=== PATIENT | female | born 1950 | race African-American/Black ===

== ENCOUNTER 2016-11-28 10:28 | Outpatient (CLI) | payer MEDICARE, MEDICAID ==
[2016-11-28] MEDS ORDERED: ADVAIR HFA 115-12 GM INH (11:35)
[2016-11-28] MEDS ORDERED: MONTELUKAST SOD10 MG ORAL (11:35)
[2016-11-28] MEDS ORDERED: EDARBI40 MG ORAL (11:35)
--- NOTE | 2016-11-28 11:41 | GI Initial Consult Note ---
History of Present Illness General Date patient seen: November 28, 2016 Time patient seen: 11:29 Referring physician: PRIYA Reason for Consultation: PANCREATIC CYST Present Illness HPI 66 year old female patient familiar to Dr. Urbina from [facility] presents today for evaluation of pancreatic cyst and inflammation which was down on a previous CT study. The pt c/o LUQ pain she contributes to her pancreatitis, stating that her trial period of Creon has been helpful. In addition, the patient c/o of fluctuating weight loss and gain in the past few months which has now stabilized. Last EGD/colonoscopy was approximately 4 years ago. Home Meds Reported Medications Fluticasone/Salmeterol (ADVAIR HFA 115-21 MCG INHALER) Unknown Strength Hfa.aer.ad, INH EVERY 12 HOURS, EA 11/28/16 Montelukast Sodium* (MONTELUKAST SODIUM*) Unknown Strength Tablet, ORAL DAILY, TAB 11/28/16 Azilsartan Medoxomil (EDARBI) Unknown Strength Tablet, ORAL DAILY, TAB 11/28/16 Med list reviewed/reconciled: Yes Allergies: Coded Allergies: No Known Allergies (Unverified , 11/28/16) Patient History PMH Narrative Asthma HTN Family History Narrative N/A Social History: Denies: alcohol use, drug use, other, smoking Review of Systems All Other Systems: negative except mentioned in HPI Physical Exam T 98.1 BP 99/73 P 74 99 RA WT 217.3 lbs (loss from ~240 >> 197 >> now present) 4 months Sp02 EP Interpretation: reviewed General Appearance: well appearing, no apparent distress, alert, obese Head: normocephalic EENT: normal ENT inspection Neck: supple Respiratory: normal inspection, chest non-tender, lungs clear Cardiovascular: normal rate Gastrointestinal: normal inspection, non tender, soft Rectal: deferred Musculoskeletal: normal inspection, back normal Neurologic: normal inspection, alert, oriented x3, responsive Psychiatric: normal inspection, judgement/insight normal, memory normal Skin: normal inspection, normal color, no rash Lymphatic: normal inspection, no adenopathy GI: Plan Problems: (1) HTN (hypertension) (2) Asthma (3) Pancreatic cyst (4) Pancreatitis Plan h/o of colonic polyps >> pt will need colonoscopy on next visit EUS scheduled 12/06/16 to evaluate pancreatic cyst - NPO @ MN day prior to procedure. - labs to be drawn: CA19-9, CEA rx linzess 25 mcg monitor weight Seen with Dr. Urbina. Thank you for referring this patient. Monica Rubio N.P. November 28, 2016 11:41
[2016-11-28 12:48] VITALS: BP 99/73
== END 2016-11-28 11:10 | disposition home or self-care (01) ==
LOC: PAN 10:28
DX: I10 Essential (primary) hypertension (principal); J45.909 Unspecified asthma, uncomplicated; K86.2 Cyst of pancreas; K85.90 Acute pancreatitis without necrosis or infection, unspecified
CPT/HCPCS: 99211

== ENCOUNTER 2016-12-06 08:13 | Day surgery (SDC) | payer MEDICARE, MEDICAID ==
[~2016-12-06] VITALS: Ht 158.8 cm; Wt 98.4 kg
[2016-12-06] VITALS (9 sets, daily range): BP systolic 122–136; BP diastolic 56–68
[~2016-12-06 08:13] MED LIST: ADVAIR HFA 115-12 GM INH; CREON DR 3,0001 EACH PO; EDARBI40 MG ORAL; MONTELUKAST SOD10 MG ORAL
[2016-12-06] MEDS ORDERED: VITAMIN D3 COM1 EACH PO (09:14)
[2016-12-06] MEDS ORDERED: [UNRECOGNIZED DRUG - OTHER] PO (09:14)
[2016-12-06] MEDS ORDERED: PERCOCET 10-321 EAC1 PO (09:16)
[2016-12-06] MEDS ORDERED: MOTRIN PO (09:17)
[2016-12-06] MEDS ORDERED: Propofol 10mg/ml 20ml IV ONE (09:30)
[2016-12-06] MEDS ORDERED: fentaNYL 100 mcg/2 mL IV ONE (09:30)
[2016-12-06] MEDS ORDERED: Midazolam 2mg/2ml Inj ONE (09:30)
[2016-12-06] MEDS ORDERED: LR 1000ml ONE (09:30)
--- NOTE | 2016-12-06 09:32 | Pre-Procedure Note/Attestation ---
Pre-Procedure Note/Attestation Complete Prior to Procedure Planned Procedure: not applicable Procedure Narrative: egd/eus Indications for Procedure Pre-Operative Diagnosis: pancreatic cyst Attestation I attest that I discussed the nature of the procedure; its benefits; risks and complications; and alternatives (and the risks and benefits of such alternatives ), prior to the procedure, with the patient (or the patient's legal employee representative). I attest that, if there was a reasonable possibility of needing a blood transfusion, the patient (or the patient's legal employee representative) was given the [facility] standardized written summary, pursuant to the Sanjay Radha Blood Safety Act ([place] Health and Safety Code # 1645, as amended). I attest that I re-evaluated the patient just prior to the surgery and that there has been no change in the patient's H&P, except as documented below: BRANDON SOUZA Dec 06, 2016 09:32
--- NOTE | 2016-12-06 09:32 | Short Stay Surgery H&P ---
History of Present Illness History of Present Illness Chief Complaint see recent consult note HPI Amalia White is a 66 year old female who was admitted on for Pancreatic Cyst Patient History Allergies: Coded Allergies: AMPICILLIN (Verified Allergy, Severe, HIVES, ITCH, 12/05/16) ASPIRIN (Verified Allergy, Severe, TONGUE SWELLING, ITCHING, 12/05/16) ERYTHROMYCIN BASE (Verified Allergy, Severe, ITCH , 12/05/16) IODINE (Verified Allergy, Severe, HIVES, ITCHING, 12/05/16) PENICILLINS (Verified Allergy, Severe, HIVES, 12/05/16) TETRACYCLINES (Verified Allergy, Severe, SWELLING, ITCHING, 12/05/16) PAST MEDICAL HISTORY: Past Surgeries: Social History: Medication History Scheduled Azilsartan Medoxomil (Edarbi), Unknown Dose ORAL DAILY, (Reported) Fluticasone/Salmeterol (Advair Hfa 115-21 Mcg Inhaler), Unknown Dose INH EVERY 12 HOURS, (Reported) Lipase/Protease/Amylase (Creon Dr 3,000 Units Capsule), 1 EACH PO DAILY, ( Reported) Montelukast Sodium* (Montelukast Sodium*), Unknown Dose ORAL DAILY, (Reported) Mv-Mn/Iron/Fa/Herbal Cmplx#190 (Vitamin D3 Complete Caplet), 1 EACH PO DA, ( Reported) [Motrin], 800 MG PO BID, (Reported) [Urgent Energy], 2 CAP PO DA, (Reported) Scheduled PRN Oxycodone HCl/Acetaminophen (Percocet 10-325 mg Tablet), 1 EACH PO Q6 PRN for For Pain, (Reported) Physical Exam Vital Signs Last Vital Signs Date Time Temp Pulse Resp B/P Pulse Ox O2 Delivery O2 Flow Rate FiO2 12/06/16 09:06 98.2 67 20 122/68 98 Room Air Plan Attestation Are the patient's medical conditions optimized for surgery? BRANDON SOUZA Dec 06, 2016 09:32
--- NOTE | 2016-12-06 10:01 | Endoscopy Procedure Note ---
Endoscopy Procedure Note Indication for Procedure: pancreatic cyst, abd pain Procedures Performed: EGD, other - EUS Operative Findings/Diagnosis: gastritis Specimen: yes Pt Tolerated Procedure Well: Yes Estimated Blood Loss: none Anesthesiologist: pipe Anesthesia: MAC Implant(s) used?: No 50 yrs or older w/o bx or poly: Not Applicable 10yrs. F/U not recommended: Not Applicable BRANDON SOUZA Dec 06, 2016 10:01
[2016-12-06] MEDS ORDERED: LR 1000ml 1,000 ML IVLG SCH (10:08)
[2016-12-06] MEDS ORDERED: DiphenhydrAMINE 50mg/ml Inj IVP PRN (10:15)
[2016-12-06] MEDS ORDERED: Meperidine 25mg/0.5ml Inj IM PRN (10:15)
--- NOTE | 2016-12-06 10:26 | Anethesia Preoperative Eval ---
Anesthesia Pre-op PMH/ROS General Date of Evaluation: Dec 06, 2016 Time of Evaluation: 09:22 Anesthesiologist: Haylie ASA Score: ASA 3 Mallampati Score Class I : Soft palate, uvula, fauces, pillars visible Class II: Soft palate, uvula, fauces visible Class III: Soft palate, base of uvula visible Class IV: Only hard plate visible Mallampati Classification: Class III Surgeon: Ciara Diagnosis: Abdominal pain Surgical Procedure: EGD wt EUS Anesthesia History: none Family History: no anesthesia problems Allergies: Coded Allergies: AMPICILLIN (Verified Allergy, Severe, HIVES, ITCH, 12/05/16) ASPIRIN (Verified Allergy, Severe, TONGUE SWELLING, ITCHING, 12/05/16) ERYTHROMYCIN BASE (Verified Allergy, Severe, ITCH , 12/05/16) IODINE (Verified Allergy, Severe, HIVES, ITCHING, 12/05/16) PENICILLINS (Verified Allergy, Severe, HIVES, 12/05/16) TETRACYCLINES (Verified Allergy, Severe, SWELLING, ITCHING, 12/05/16) Medications: see eMAR Past Medical History Cardiovascular: Reports: HTN, Denies: CAD, [place], arrhythmia, other, valve dz Pulmonary: Reports: ALLAN, Denies: COPD, asthma, other Gastrointestinal/Genitourinary: Reports: GERD, Denies: CRI, ESRD, other Neurologic/Psychiatric: Denies: CVA, TIA, dementia, depression/anxiety, other Endocrine: Reports: DM, Denies: hypothyroidism, other, steroids HEENT: Denies: [place] (L), [place] (R), cataract (L), cataract (R), glaucoma, other Hematology/Immune: Denies: DVT, anemia, bleeding disorder, other Musculoskeletal/Integumentary: Reports: DJD, Denies: DDD, OA, RA, edema, other Other: obesity PMH Narrative: as above PSxH Narrative: C- section, colonoscopy,Knee arthroplasty Anesthesia Pre-op Phys. Exam Physician Exam Last Vital Signs Date Time Temp Pulse Resp B/P Pulse Ox O2 Delivery O2 Flow Rate FiO2 12/06/16 10:14 69 27 132/66 14 Room Air 12/06/16 10:09 3.0 12/06/16 10:04 97.3 Constitutional: NAD Neurologic: CN 2-12 intact Cardiovascular: RRR, no M/R/G Respiratory: CTA Gastrointestinal: other - obesity Airway Exam Mallampati Score: Class III MO: limited Neck: short ROM: limited Teeth: missing Dentures: no lower, no upper Anesthesia Pre-op A/P Studies Pre-op Studies: EKG - SR Risk Assessment & Plan Assessment: ASA 3 Plan: MAC Status Change Before Surgery: No Pre-Antibiotics Drug: none ALCON PIZARRO M.D. Dec 06, 2016 10:26
[2016-12-06] MEDS ORDERED: Meperidine 25mg/0.5ml Inj ONE (10:27)
[2016-12-06] MEDS ORDERED: Meperidine 25mg/0.5ml Inj IV PRN (10:30)
--- NOTE | 2016-12-06 10:51 | Immediate Post-Op Evaluation ---
Immediate Post-Op Evalulation Immediate Post-Op Evalulation Procedure: EGD with EUS Date of Evaluation: Dec 06, 2016 Time of Evaluation: 10:08 IV Fluids: 300 Blood Products: none Estimated Blood Loss: none Urinary Output: none Blood Pressure Systolic: 132 Blood Pressure Diastolic: 56 Pulse Rate: 64 Respiratory Rate: 20 O2 Sat by Pulse Oximetry: 98 Temperature (Fahrenheit): 97.3 Pain Score (1-10): 2 Nausea: No Vomiting: No Complications none Patient Status: awake, patent, none Hydration Status: adequate ALCON PIZARRO M.D. Dec 06, 2016 10:51
--- NOTE | 2016-12-06 11:03 | 48 Hour Post Anesthesia Eval ---
Post Anesthesia Evaluation Procedure: EGD with EUS Date of Evaluation: Dec 06, 2016 Time of Evaluation: 11:02 Blood Pressure Systolic: 138 0: 58 Pulse Rate: 64 Respiratory Rate: 20 Temperature (Fahrenheit): 97.4 O2 Sat by Pulse Oximetry: 98 Airway: patent Nausea: No Vomiting: No Pain Intensity: 2 Hydration Status: adequate Cardiopulmonary Status: stable Mental Status/LOC: patient returned to baseline Follow-up Care/Observations: n/a Post-Anesthesia Complications: none Follow-up care needed: ready to discharge ALCON PIZARRO M.D. Dec 06, 2016 11:03
--- NOTE | 2016-12-06 17:45 | Procedure Note ---
DATE OF PROCEDURE: 12/06/2016 SURGEON: Medardo Urbina M.D. PROCEDURE: Upper endoscopy with biopsy and endoscopic ultrasound. ANESTHESIOLOGIST: Lev Stallings M.D. INSTRUMENT: Olympus adult flexible upper endoscope and EUS scope. INDICATION: Pancreatic cyst, abdominal pain, nausea and vomiting. INDICATIONS FOR PROCEDURE: The procedure, risks, benefits, and possible consequences, including hemorrhage, aspiration, perforation and infection, and alternative treatments, were explained to the patient/legal guardian by Dr. Medardo Urbina and the patient/legal guardian understood and accepted these risks. DESCRIPTION OF PROCEDURE: After informed consent was obtained and the patient was adequately sedated, the Olympus upper endoscope was advanced through the mouth into the second portion of the duodenum and retroflexion maneuver was performed in the stomach. The patient had evidence of diffuse gastritis. Random biopsy from antrum was obtained to rule out H. pylori infection. The patient also had mild evidence of duodenitis. At this time, upper endoscope was retrieved and EUS scope was introduced. Starting scanning at the GE junction, we saw the celiac axis without any obvious celiac axis lymphadenopathy. Pancreatic parenchyma was examined with the scope in the stomach. There was no evidence of any pancreatitis. No obvious pancreatic duct dilatation. No obvious cyst in the body or tail of the pancreas while the scope was in the stomach. No evidence any parapancreatic lymphadenopathy. Then, the scope was advanced through the duodenal bulb and second portion of the duodenum. Liver was seen with some fatty infiltration. There was no evidence of any gallstones. Common bile duct measured roughly about 3 mm without any obvious stone in the common bile duct. No obvious mass or any pathology or lymph node in this area was seen. The pancreatic head examination, starting at the ampulla, there was normal common bile duct and pancreatic duct size in the head of the pancreas. No other cyst that was seen in the prior CT scan. We were not able to see very well in this study, although we had a hard time keeping the scope in the second portion of the duodenum, every time we tried to get a good close of the head, the scope was withdrawn back into the stomach. We kept the scope in the duodenal bulb and inflated the balloon and tried to examine the head from that area which we did not see obvious cyst. The patient tolerated the procedure without any complication. SUMMARY OF FINDINGS: 1. Gastritis, status post biopsy. 2. Fatty infiltration of the liver. 3. No obvious pancreatic cyst was seen. 4. Normal common bile duct and pancreatic duct caliber. RECOMMENDATIONS: At this time, the patient has been responding to Creon. We do not see any obvious pancreatitis. No pancreatic mass at this time. We recommend repeat imaging studies in one year to see if there is any cyst at that time. I want to thank, Dr. Gavin Greenwood, for this kind referral. Medardo Urbina M.D. DR: Nora JOB#: [id number] CC: Gavin Greenwood M.D.; Fax#: [phone]
--- NOTE | 2016-12-07 09:09 | Cardiology Report ---
APPROVED REPORT EKG Measurement Heart [id number] AR 162P68 [id number] Normal sinus rhythm Left axis deviation Abnormal ECG
== END 2016-12-06 12:05 | disposition home or self-care (01) ==
LOC: GAS 08:13
DX: K86.2 Cyst of pancreas (principal); K29.50 Unspecified chronic gastritis without bleeding; K29.80 Duodenitis without bleeding; I10 Essential (primary) hypertension; G47.33 Obstructive sleep apnea (adult) (pediatric); K21.9 Gastro-esophageal reflux disease without esophagitis; E11.9 Type 2 diabetes mellitus without complications; M19.90 Unspecified osteoarthritis, unspecified site; E66.9 Obesity, unspecified; K76.0 Fatty (change of) liver, not elsewhere classified; Z88.3 Allergy status to other anti-infective agents; Z88.0 Allergy status to penicillin; Z88.1 Allergy status to other antibiotic agents; Z88.6 Allergy status to analgesic agent; Z91.041 Radiographic dye allergy status
CPT/HCPCS: 43237; 43239; 82962; 93005; J2250; J2704; J3010; J7120; 94003; 94150; J2180

== ENCOUNTER 2016-12-21 10:24 | Outpatient (CLI) | payer MEDICARE, MEDICAID ==
[~2016-12-21 10:24] MED LIST changes: +MOTRIN PO; +PERCOCET 10-321 EAC1 PO; +VITAMIN D3 COM1 EACH PO; +[UNRECOGNIZED DRUG - OTHER] PO
[2016-12-21 12:14] VITALS: BP 143/45
[2016-12-21] MEDS ORDERED: blood thinner (12:22)
--- NOTE | 2016-12-21 15:41 | GI Progress Note ---
Assessment/Plan Problems: (1) HTN (hypertension) ICD Codes: I10 - Essential (primary) hypertension SNOMED: 12625936 (2) Asthma ICD Codes: J45.909 - Unspecified asthma, uncomplicated SNOMED: 734663627 (3) Pancreatitis ICD Codes: K85.90 - Acute pancreatitis without necrosis or infection, unspecified SNOMED: 28401447 (4) Pancreatic cyst ICD Codes: K86.2 - Cyst of pancreas SNOMED: 67138380 Status: stable Status Narrative Discussed with Dr. Urbina. Assessment/Plan hx of colonic polyps last colonoscopy 5+ years new DVT, started on blood thinners 2 weeks ago cont Creon plan for colonoscopy in March. RTC x 3 months Endoscopy Procedure Note Indication for Procedure: pancreatic cyst, abd pain Procedures Performed: EGD, other - EUS Operative Findings/Diagnosis: gastritis BRANDON URBINA - Dec 06, 2016 10:01 Subjective Subjective Abdominal Pain RLQ improving increase of weight (217 to 226lbs) diarrhea, 2x weekly with large stools new DVT, started on blood thinners 2 weeks ago Objective Last 24 Hour Vital Signs Date Time Temp Pulse Resp B/P Pulse Ox O2 Delivery O2 Flow Rate FiO2 12/21/16 12:14 98.1 70 20 143/45 99 General Appearance: no apparent distress, alert Cardiovascular: normal rate Respiratory/Chest: normal breath sounds, no respiratory distress Abdominal Exam: normal bowel sounds, non tender, soft Extremities: normal range of motion Monica Rubio N.P. Dec 21, 2016 15:41
== END 2016-12-21 11:00 | disposition home or self-care (01) ==
LOC: PAN 10:24
DX: I10 Essential (primary) hypertension (principal); J45.909 Unspecified asthma, uncomplicated; K85.90 Acute pancreatitis without necrosis or infection, unspecified; K86.2 Cyst of pancreas
CPT/HCPCS: 99211

== ENCOUNTER 2017-05-02 20:49 | Emergency (ER) | payer OTHER, MEDICAID ==
[~2017-05-02] VITALS: Ht 157.5 cm; Wt 96.6 kg
[~2017-05-02 20:49] MED LIST changes: +blood thinner
[2017-05-02] MEDS ORDERED: EDARBI80 MG ORAL (20:58)
[2017-05-02] MEDS ORDERED: METFORMIN HCL500 M1 ORAL (20:58)
[2017-05-02 21:00] VITALS: BP 156/80
[2017-05-02] MEDS ORDERED: HYDROCODON-ACE1 EA15 ORAL (21:11)
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
[2017-05-02] MEDS ORDERED: Norco 5mg/325mg tab ORAL ONE (21:15)
[2017-05-02 21:26] VITALS: BP 156/80
== END 2017-05-02 21:26 | disposition home or self-care (01) ==
LOC: EMR 21:07
DX: S16.1XXA Strain of muscle, fascia and tendon at neck level, initial encounter (principal); S39.012A Strain of muscle, fascia and tendon of lower back, initial encounter; V43.52XA Car driver injured in collision with other type car in traffic accident, initial encounter; Y92.410 Unspecified street and highway as the place of occurrence of the external cause; I10 Essential (primary) hypertension; J45.909 Unspecified asthma, uncomplicated; E11.9 Type 2 diabetes mellitus without complications; Z88.0 Allergy status to penicillin; Z88.6 Allergy status to analgesic agent
CPT/HCPCS: 99283

== ENCOUNTER 2017-05-14 20:23 | Emergency (ER) | payer OTHER, MEDICAID ==
[~2017-05-14] VITALS: Ht 157.5 cm; Wt 100.7 kg
[~2017-05-14 20:23] MED LIST changes: +EDARBI80 MG ORAL; +HYDROCODON-ACE1 EA15 ORAL; +METFORMIN HCL500 M1 ORAL
[2017-05-14 21:00] VITALS: BP 161/95
[2017-05-14] MEDS ORDERED: Acetaminophen 500mg (ES) tab ORAL ONE (21:15)
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
[2017-05-14] MEDS ORDERED: ROBAXIN-750750 MG PO (21:20)
[2017-05-14 22:06] VITALS: BP 161/95
== END 2017-05-14 22:06 | disposition home or self-care (01) ==
LOC: EMR 21:30
DX: S16.1XXA Strain of muscle, fascia and tendon at neck level, initial encounter (principal); S39.012A Strain of muscle, fascia and tendon of lower back, initial encounter; E11.9 Type 2 diabetes mellitus without complications; J45.909 Unspecified asthma, uncomplicated; I10 Essential (primary) hypertension; E78.00 Pure hypercholesterolemia, unspecified; Z88.0 Allergy status to penicillin; Z88.1 Allergy status to other antibiotic agents; Z88.6 Allergy status to analgesic agent; Z91.041 Radiographic dye allergy status; Z96.653 Presence of artificial knee joint, bilateral; V49.9XXA Car occupant (driver) (passenger) injured in unspecified traffic accident, initial encounter; Y92.410 Unspecified street and highway as the place of occurrence of the external cause
CPT/HCPCS: 99283

== ENCOUNTER 2017-11-09 22:10 | Inpatient (IN) | payer MEDICARE, MEDICAID ==
[~2017-11-09] VITALS: Ht 157.5 cm; Wt 98.0 kg
[~2017-11-09 22:10] MED LIST changes: +ROBAXIN-750750 MG PO
[2017-11-09 22:25] VITALS: BP 118/64
--- NOTE | 2017-11-09 22:36 | Emergency Room Report ---
History of Present Illness General Chief Complaint: Lower Back Pain or Injury Source: Patient, Medical Record Present Illness HPI This is a 67-year-old female with history of pancreatitis in the past. She also has bilateral knee osteoarthritis that need knee replacement. She presents with chief complaint of left flank back pain. Onset today. No trauma. Pain radiates to the groin and buttock area. No incontinence of bowel or urine. No fever chills but no nausea no vomiting. Worse with standing. Better with rest. Pain is 9 out of 10. No anesthesia. Allergies: Coded Allergies: AMPICILLIN (Verified Allergy, Severe, HIVES, ITCH, 05/02/17) ASPIRIN (Verified Allergy, Severe, TONGUE SWELLING, ITCHING, 05/02/17) ERYTHROMYCIN BASE (Verified Allergy, Severe, ITCH , 05/02/17) IODINE (Verified Allergy, Severe, HIVES, ITCHING, 05/02/17) PENICILLINS (Verified Allergy, Severe, HIVES, 05/02/17) TETRACYCLINES (Verified Allergy, Severe, SWELLING, ITCHING, 05/02/17) CODEINE (Verified Allergy, Unknown, 11/09/17) Patient History Past Medical History: see triage record, old chart reviewed Past Surgical History: other Pertinent Family History: none Social History: Denies: smoking Now: No Immunizations: other Reviewed Nursing Documentation: PMH: Agreed; PSxH: Agreed Nursing Documentation-PMH Past Medical History: No History, Except For Hx Cardiac Problems: Yes - High cholerstrol Hx Hypertension: Yes Hx Asthma: Yes Hx Diabetes: Yes - Borderline Hx Cancer: No Hx Gastrointestinal Problems: Yes Hx Neurological Problems: Yes - Glaucoma, Left knee replacement 2016 Hx Vertigo: Yes Hx Dizziness: Yes Review of Systems Eye: Denies: eye pain, blurred vision ENT: Denies: ear pain, nose congestion, throat swelling Respiratory: Denies: cough, shortness of breath Cardiovascular: Denies: chest pain, palpitations Gastrointestinal: Denies: abdominal pain, diarrhea, nausea, vomiting Musculoskeletal: Reports: back pain; Denies: joint pain Skin: Denies: rash Neurological: Denies: headache, numbness Endocrine: Denies: increased thirst, increased urine Hematologic/Lymphatic: Denies: easy bruising All Other Systems: negative except mentioned in HPI Physical Exam Vital Signs Date Time Temp Pulse Resp B/P (MAP) Pulse Ox O2 Delivery O2 Flow Rate FiO2 11/09/17 22:15 98.7 87 16 118/64 98 Room Air 98.8 vitals normal Sp02 EP Interpretation: reviewed, normal General Appearance: well appearing, no apparent distress, alert, obese Head: normocephalic, atraumatic Eyes: bilateral eye PERRL, bilateral eye EOMI ENT: hearing grossly normal, normal pharynx Neck: full range of motion, supple, no meningismus Respiratory: chest non-tender, lungs clear, normal breath sounds Cardiovascular #1: regular rate, rhythm, no murmur Gastrointestinal: normal bowel sounds, non tender, no mass, no organomegaly, no bruit, non-distended Musculoskeletal: back normal - tenderness over the left upper lumbar paraspinous area. No step-off. No anesthesia., gait/station normal, normal range of motion Psychiatric: mood/affect normal Skin: warm/dry Medical Decision Making Diagnostic Impression: Primary Impression: Pancreatitis Qualified Codes: K85.00 - Idiopathic acute pancreatitis without necrosis or infection Additional Impressions: UTI (urinary tract infection) Qualified Codes: N30.00 - Acute cystitis without hematuria Morbid obesity with BMI of 40.0-44.9, adult ER Course Patient presents with left upper back pain. She does have pain with palpation of the left upper quadrant. Lipase is elevated. She has a history of necrotic cyst that was better with Creon. She's not an alcoholic. No evidence of gallbladder disease. Will admit for IV hydration and pain control. Antibiotics also given for UTI. I contacted Dr. Greenwood for admission. Lab Results Impression labs with elevated lipase CT/MRI/US Diagnostic Results CT/MRI/US Diagnostic Results : Imaging Test Ordered: CT abdomen and pelvis Impression read by radiologist. Unremarkable Last Vital Signs Date Time Temp Pulse Resp B/P (MAP) Pulse Ox O2 Delivery O2 Flow Rate FiO2 11/09/17 22:15 98.7 87 16 118/64 98 Room Air 98.8 Status: improved Disposition: ADMITTED INPATIENT Condition: Serious FAISAL HUANG M.D. November 09, 2017 22:36
[2017-11-09] MEDS ORDERED: Morphine Sulfate 4mg/ml Inj IVP ONE ×2 (22:45→23:45)
[2017-11-09 22:51] LABS: APPEARANCE,URINE SLIGHTLY CLOUDY; BASOPHILS % (AUTO) 0.9 % (0.0-2.0); BILIRUBIN, URINE NEGATIVE (NEGATIVE); GLUCOSE, URINE (UA) NEGATIVE (NEGATIVE); HEMATOCRIT 36.4 % (37.0-47.0); HEMOGLOBIN 11.7 G/DL (12.0-16.0); KETONES,URINE NEGATIVE (NEGATIVE); LEUKOCYTE ESTERASE ,URINE 3+ (NEGATIVE); LYMPHOCYTES % (AUTO) 23.4 % (20.0-45.0); MEAN CORPUSCULAR VOLUME 83 FL (80-99); MONOCYTES % (AUTO) 5.9 % (1.0-10.0); NEUTROPHILS % (AUTO) 66.7 % (45.0-75.0); NITRITE,URINE NEGATIVE (NEGATIVE); PH,URINE 6 (4.5-8.0); PLATELET COUNT 296 K/UL (150-450); PROTEIN,URINE NEGATIVE (NEGATIVE); RED BLOOD COUNT 4.37 M/UL (4.20-5.40); RED CELL DISTRIBUTION WIDTH 13.1 % (11.6-14.8); UROBILINOGEN,URINE NORMAL MG/DL (0.0-1.0); WHITE BLOOD COUNT 11.1 K/UL (4.8-10.8)
[2017-11-09 22:52] LABS: COLOR,URINE YELLOW
[2017-11-09 23:09] LABS: ANION GAP 8 mmol/L (5-15); BLOOD UREA NITROGEN 25 mg/dL (7-18); CALCIUM 9.9 MG/DL (8.5-10.1); CARBON DIOXIDE 31 MMOL/L (21-32); CHLORIDE 105 MMOL/L (98-107); CREATININE 1.6 MG/DL (0.55-1.30); POTASSIUM 4.1 MMOL/L (3.5-5.1); SODIUM 144 MMOL/L (136-145)
[2017-11-09 23:14] LABS: ALANINE AMINOTRANSFERASE 17 U/L (12-78); ALBUMIN 3.8 G/DL (3.4-5.0); ALBUMIN/GLOBULIN RATIO 0.9 (1.0-2.7); ALKALINE PHOSPHATASE 84 U/L (46-116); ASPARTATE AMINO TRANSFERASE 16 U/L (15-37); BILIRUBIN,TOTAL 0.3 MG/DL (0.2-1.0)
--- NOTE | 2017-11-09 23:28 | Diagnostic Imaging Report ---
EXAM: CT Abdomen and Pelvis Without Intravenous Contrast CLINICAL HISTORY: ABD PAIN TECHNIQUE: Axial computed tomography images of the abdomen and pelvis without intravenous contrast. CTDI is 0.15, 19.07 mGy and DLP is 876 mGy-cm. One or more of the following dose reduction techniques were used: automated exposure control, adjustment of the mA and/or kV according to patient size, use of iterative reconstruction technique. COMPARISON: No relevant prior studies available. FINDINGS: Lung bases: Unremarkable. No mass. No consolidation. ABDOMEN: Liver: Unremarkable. Gallbladder and bile ducts: Unremarkable. Pancreas: Unremarkable. Spleen: Unremarkable. Adrenals: Unremarkable. Kidneys and ureters: Multiple cysts with both kidneys. Calcification within the left kidney. No hydronephrosis. Stomach and bowel: Noninflamed colonic diverticulosis. PELVIS: Appendix: Appendix is unremarkable. Bladder: Unremarkable. Reproductive: Unremarkable as visualized. ABDOMEN and PELVIS: Intraperitoneal space: Unremarkable. Bones/joints: Degenerative changes. No acute fracture. No dislocation. Soft tissues: Tiny fat-containing umbilical hernia. Vasculature: Vascular calcifications. No abdominal aortic aneurysm. Lymph nodes: Unremarkable. IMPRESSION: No acute findings.
[2017-11-09] MEDS ORDERED: cefTRIAXone 1 GM in NS 55 ML IVPB ONE (23:30)
[2017-11-10] MEDS ORDERED: EDARBI40 MG ORAL (00:03)
[2017-11-10] MEDS ORDERED: DOXEPIN HCL100 MG ORAL (00:07)
[2017-11-10 01:00] VITALS: BP 129/89
[2017-11-10] MEDS ORDERED: WELLBUTRIN SR100 MG ORAL (01:15)
[2017-11-10] MEDS ORDERED: VITAMIN D400 INTLU ORAL (01:15)
[2017-11-10] MEDS ORDERED: GEODON40 MG ORAL (01:15)
[2017-11-10 04:18] VITALS: BP 105/62
[2017-11-10] MEDS ORDERED: Morphine Sulfate 4mg/ml Inj IVP PRN ×5 (05:30→10:45)
[2017-11-10 08:15] VITALS: BP 117/69
[2017-11-10] MEDS ORDERED: BuPROPion SR 100mg tab ORAL SCH ×2 (09:00→10:30)
[2017-11-10] MEDS ORDERED: metFORMIN 500mg tab ORAL SCH ×2 (09:45)
[2017-11-10 11:47] VITALS: BP 118/72
[2017-11-10 12:35] LABS: ANION GAP 11 mmol/L (5-15); BLOOD UREA NITROGEN 24 mg/dL (7-18); CALCIUM 9.4 MG/DL (8.5-10.1); CARBON DIOXIDE 25 MMOL/L (21-32); CHLORIDE 104 MMOL/L (98-107); POTASSIUM 4.3 MMOL/L (3.5-5.1); SODIUM 140 MMOL/L (136-145)
[2017-11-10 12:37] LABS: AMYLASE 95 U/L (25-115)
[2017-11-10 12:40] LABS: BASOPHILS % (AUTO) 1.6 % (0.0-2.0); HEMATOCRIT 37.1 % (37.0-47.0); HEMOGLOBIN 11.9 G/DL (12.0-16.0); LYMPHOCYTES % (AUTO) 36.5 % (20.0-45.0); MEAN CORPUSCULAR VOLUME 85 FL (80-99); MONOCYTES % (AUTO) 8.2 % (1.0-10.0); NEUTROPHILS % (AUTO) 47.8 % (45.0-75.0); PLATELET COUNT 144 K/UL (150-450); RED BLOOD COUNT 4.35 M/UL (4.20-5.40); RED CELL DISTRIBUTION WIDTH 13.4 % (11.6-14.8); WHITE BLOOD COUNT 7.4 K/UL (4.8-10.8)
[2017-11-10] MEDS: Morphine Sulfate 4mg/ml Inj IVP PRN ×2 (15:27→22:05)
[2017-11-10 15:36] VITALS: BP 115/83
--- NOTE | 2017-11-10 18:29 | General Progress Note ---
Assessment/Plan Assessment/Plan Assessment - Clinical presentation not typical for pancreatitis (buttock and flank pain) - CT negative for pancreatitis, but elevated lipase noted - previous pancreatic w/u in 2016 negative Recommendations - advance diet as tolerated - consider ortho eval for ? musculoskeletal pain - MRCP Sunday Thank you Thanh Akins MD Subjective Allergies: Coded Allergies: AMPICILLIN (Verified Allergy, Severe, HIVES, ITCH, 05/02/17) ASPIRIN (Verified Allergy, Severe, TONGUE SWELLING, ITCHING, 05/02/17) ERYTHROMYCIN BASE (Verified Allergy, Severe, ITCH , 05/02/17) IODINE (Verified Allergy, Severe, HIVES, ITCHING, 05/02/17) PENICILLINS (Verified Allergy, Severe, HIVES, 05/02/17) TETRACYCLINES (Verified Allergy, Severe, SWELLING, ITCHING, 05/02/17) CODEINE (Verified Allergy, Unknown, 11/09/17) Objective Last 24 Hour Vital Signs Date Time Temp Pulse Resp B/P (MAP) Pulse Ox O2 Delivery O2 Flow Rate FiO2 11/10/17 16:00 Room Air 11/10/17 15:36 98.2 67 20 115/83 98 98.2 11/10/17 12:00 Room Air 11/10/17 11:47 97.5 72 20 118/72 98 97.5 11/10/17 08:15 Room Air 11/10/17 08:15 97.7 72 20 117/69 98 97.7 11/10/17 04:18 96.3 69 20 105/62 98 Room Air 96.3 11/10/17 04:00 Room Air 11/10/17 01:00 97.5 78 23 129/89 97 Room Air 97.5 11/10/17 00:30 0/0 11/10/17 00:13 98.7 11/09/17 23:43 98.7 11/09/17 23:10 98.7 11/09/17 22:40 98.7 11/09/17 22:25 98.8 86 16 118/64 98 Room Air 98.8 11/09/17 22:15 98.7 87 16 118/64 98 Room Air 98.8 Intake and Output 11/09/17 11/10/17 19:00 07:00 Intake Total 260 ml Balance 260 ml Intake Oral 160 ml IV Total 100 ml # Voids 1 Laboratory Tests 11/09/17 22:40: White Blood Count 11.1H, Red Blood Count 4.37, Hemoglobin 11.7L, Hematocrit 36.4L, Mean Corpuscular Volume 83, Mean Corpuscular Hemoglobin 26.8L, Mean Corpuscular Hemoglobin Concent 32.2, Red Cell Distribution Width 13.1, Platelet Count 296, Mean Platelet Volume 6.3L, Neutrophils (%) (Auto) 66.7, Lymphocytes ( %) (Auto) 23.4, Monocytes (%) (Auto) 5.9, Eosinophils (%) (Auto) 3.0, Basophils (%) (Auto) 0.9, Urine Color Yellow, Urine Appearance Slightly cloudy, Urine pH 6 , Urine Specific [place] 1.010, Urine Protein Negative, Urine Glucose (UA) Negative, Urine Ketones Negative, Urine Occult Blood Negative, Urine Nitrite Negative, Urine Bilirubin Negative, Urine Urobilinogen Normal, Urine Leukocyte Esterase 3+H, Urine RBC 2-4H, Urine WBC 20-30H, Urine Squamous Epithelial Cells ModerateH, Urine Bacteria ModerateH, Sodium Level 144, Potassium Level 4.1, Chloride Level 105, Carbon Dioxide Level 31, Anion Gap 8, Blood Urea Nitrogen 25H, Creatinine 1.6H, Estimat Glomerular Filtration Rate 38.8, Glucose Level 86 , Calcium Level 9.9, Total Bilirubin 0.3, Aspartate Amino Transf (AST/SGOT) 16, Alanine Aminotransferase (ALT/SGPT) 17, Alkaline Phosphatase 84, Total Protein 7.9, Albumin 3.8, Globulin 4.1, Albumin/Globulin Ratio 0.9L, Lipase 1439H 11/10/17 12:10: White Blood Count 7.4, Red Blood Count 4.35, Hemoglobin 11.9L, Hematocrit 37.1, Mean Corpuscular Volume 85, Mean Corpuscular Hemoglobin 27.3, Mean Corpuscular Hemoglobin Concent 32.0, Red Cell Distribution Width 13.4, Platelet Count 144#L , Mean Platelet Volume 6.5, Neutrophils (%) (Auto) 47.8, Lymphocytes (%) (Auto) 36.5, Monocytes (%) (Auto) 8.2, Eosinophils (%) (Auto) 6.0H, Basophils (%) (Auto ) 1.6, Sodium Level 140, Potassium Level 4.3, Chloride Level 104, Carbon Dioxide Level 25, Anion Gap 11, Blood Urea Nitrogen 24H, Creatinine 1.0, Estimat Glomerular Filtration Rate > 60, Glucose Level 97, Calcium Level 9.4, Lipase 406H, Amylase Level 95 Height (Feet): 5 Height (Inches): 2.00 Weight (Pounds): 216 Thanh Akins MD November 10, 2017 18:29
[2017-11-10 20:13] VITALS: BP 122/90
--- NOTE | 2017-11-10 20:15 | History and Physical Report ---
DATE OF ADMISSION: 11/09/2017 REASON FOR ADMISSION: Pancreatitis. HISTORY OF PRESENT ILLNESS: This is a 67-year-old female with history of prior pancreatitis. The patient presents with back pain and some epigastric pain. The patient with radiation of pain to the groin and buttock area. The patient is seen, evaluated, and care reviewed with the ER physician. The patient has significantly elevated pancreatic enzyme and now requiring admission. The patient does have significant amount of pain and discomfort at present. The patient has no nausea or vomiting. She has no chills. The patient's pain is described as 9/10. The patient was given pain control and antiemetics in the emergency room and admitted. PAST MEDICAL HISTORY: Notable for hypercholesterolemia, hypertension, asthma, borderline diabetes, recurrent pancreatitis, glaucoma, and left knee replacement. REVIEW OF SYSTEMS: Otherwise negative except for the above back pain and dizziness. All other reviewed and otherwise negative. The patient does take metformin at present. SOCIAL HISTORY: Nonsmoker and nondrinker. 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 FAMILY HISTORY: Otherwise noncontributory to the above. PHYSICAL EXAMINATION: GENERAL: A well-developed female, currently comfortable after pain medication. VITAL SIGNS: Temperature 97.7, pulse 72, respiratory rate 20, blood pressure 117/69, and sats 98%. HEENT: Overall negative. Extraocular movements are grossly intact. Oropharynx is moist. NECK: Supple. No adenopathy. LUNGS: Otherwise fairly clear. No rhonchi or wheezes. CARDIAC: Normal S1 and S2. Regular rate and rhythm without murmurs, rubs, gallops. ABDOMEN: Tender in the epigastrium. No radiation. No distention. EXTREMITIES: No cyanosis, clubbing, or edema. NEUROLOGICAL: Grossly nonfocal. LABORATORY DATA: Lab data reviewed. BUN 35, creatinine 1.6. Lipase 1439. Albumin 3.8. White blood cell count of 11.1, hematocrit 36, and platelets of 296. Micro is thus far negative. Abdominal and pelvic CT notable for no clear acute findings. IMPRESSIONS: 1. Evidence of pancreatitis. 2. Diabetes, clinically fairly stable. 3. Hypertension per history. 4. Hypercholesterolemia per history. 5. Prior history of arthritis. 6. Left knee replacement. RECOMMENDATIONS: Supportive care. Pain control. Monitor blood sugars. Gastrointestinal evaluation. Bowel rest. We will follow clinically for further changes and interventions. Gavin Greenwood M.D. DR: HUMBERTO JOB#: [id number] CC:
[2017-11-10] MEDS: DOXEPIN 100 MG ORAL SCH (20:56)
[2017-11-10] MEDS ORDERED: DOXEPIN 100 MG ORAL SCH (21:00)
[2017-11-10] MEDS ORDERED: Ziprasidone 20mg cap ORAL SCH (21:00)
[2017-11-10] MEDS: Ziprasidone 20mg cap ORAL SCH (21:18)
[2017-11-11] VITALS: BP 120/71
--- NOTE | 2017-11-11 00:30 | Consultation ---
DATE OF CONSULTATION: 11/10/2017 GASTROENTEROLOGY CONSULTATION REPORT CONSULTING PHYSICIAN: Thanh Akins M.D. REFERRING PHYSICIAN: Gavin Greenwood M.D. CHIEF COMPLAINT: I was asked to see this patient by Dr. Gavin Greenwood for evaluation of possible pancreatitis. HISTORY OF PRESENT ILLNESS: The patient is a pleasant 67-year-old woman who comes into the hospital due to pain. Her pain is somewhat atypical as she complains of left flank and back pain. Actually, she particularly points to her buttocks on my evaluation. She has had no trauma or injury. She has had some recent . The patient came to the emergency room and had a lipase drawn, which was elevated and she was therefore admitted. The reason for drawing of lipase was she has had history of pancreatitis in the past and she underwent an endoscopic ultrasound last year. This endoscopic ultrasound showed some fatty liver, but no particular pancreatic abnormalities were identified. The patient does not drink alcohol. She specifically denies abdominal pain, nausea, or vomiting. PAST MEDICAL HISTORY: Remarkable for history of stroke and pancreatitis. SOCIAL HISTORY: The patient is single. She does not smoke or drink alcohol. FAMILY HISTORY: Noncontributory. REVIEW OF SYSTEMS: Otherwise negative. PHYSICAL EXAMINATION: GENERAL: A pleasant, woman, seen in her room. HEENT: Normocephalic and atraumatic. Sclerae anicteric. Oropharynx is clear. NECK: Supple. CHEST: Clear to auscultation. CARDIOVASCULAR: Reveals regular rate and rhythm. ABDOMEN: Soft with good bowel sounds. There is no organomegaly or tenderness. EXTREMITIES: Revealed no edema. NEUROLOGIC: Nonfocal. LABORATORY DATA: Noted. ASSESSMENT: This patient presents with buttock pain, back pain, and left flank pain, atypical for acute pancreatitis. She does have an elevated lipase, but it is unclear whether this is an incidental finding. CT scan does not show any evidence of pancreatitis. An MRCP should be done to better evaluate the pancreatic parenchyma. In the meantime, the patient should be observed and her oral diet can be advanced slowly. RECOMMENDATIONS: Per above discussion and per orders written in the chart. Thank you for asking me to participate in the care of this patient. Thanh Akins M.D. DR: Tony JOB#: [id number] CC:
[2017-11-11] MEDS: Morphine Sulfate 4mg/ml Inj IVP PRN (03:59)
[2017-11-11 04:44] VITALS: BP 121/84
--- NOTE | 2017-11-11 07:28 | General Progress Note ---
Assessment/Plan Assessment/Plan IMPRESSIONS: 1. Evidence of pancreatitis. 2. Diabetes, clinically fairly stable. 3. Hypertension per history. 4. Hypercholesterolemia per history. 5. Prior history of arthritis. 6. Left knee replacement. 7. Buttock pain PLAN advance diet hydration pain control consider ERCP defer to gi maintain meds monitor blood sugars impression, plan, and exam edited and reviewed in detail care discussed with RN Subjective Allergies: Coded Allergies: AMPICILLIN (Verified Allergy, Severe, HIVES, ITCH, 05/02/17) ASPIRIN (Verified Allergy, Severe, TONGUE SWELLING, ITCHING, 05/02/17) ERYTHROMYCIN BASE (Verified Allergy, Severe, ITCH , 05/02/17) IODINE (Verified Allergy, Severe, HIVES, ITCHING, 05/02/17) PENICILLINS (Verified Allergy, Severe, HIVES, 05/02/17) TETRACYCLINES (Verified Allergy, Severe, SWELLING, ITCHING, 05/02/17) CODEINE (Verified Allergy, Unknown, 11/09/17) Subjective improved gi noted and discussed reduced pain Objective Last 24 Hour Vital Signs Date Time Temp Pulse Resp B/P (MAP) Pulse Ox O2 Delivery O2 Flow Rate FiO2 11/11/17 04:44 97.7 58 18 121/84 94 97.7 11/11/17 00:00 Room Air 11/11/17 00:00 97.0 63 17 120/71 96 97.0 11/10/17 20:13 97.5 56 17 122/90 98 97.5 11/10/17 20:00 Room Air 11/10/17 16:00 Room Air 11/10/17 15:36 98.2 67 20 115/83 98 98.2 11/10/17 12:00 Room Air 11/10/17 11:47 97.5 72 20 118/72 98 97.5 11/10/17 08:15 Room Air 11/10/17 08:15 97.7 72 20 117/69 98 97.7 Intake and Output 11/10/17 11/11/17 19:00 07:00 Intake Total 1100 ml 1000 ml Balance 1100 ml 1000 ml IV Total 1100 ml 1000 ml # Voids 4 4 Laboratory Tests 11/10/17 12:10: White Blood Count 7.4, Red Blood Count 4.35, Hemoglobin 11.9L, Hematocrit 37.1, Mean Corpuscular Volume 85, Mean Corpuscular Hemoglobin 27.3, Mean Corpuscular Hemoglobin Concent 32.0, Red Cell Distribution Width 13.4, Platelet Count 144#L , Mean Platelet Volume 6.5, Neutrophils (%) (Auto) 47.8, Lymphocytes (%) (Auto) 36.5, Monocytes (%) (Auto) 8.2, Eosinophils (%) (Auto) 6.0H, Basophils (%) (Auto ) 1.6, Sodium Level 140, Potassium Level 4.3, Chloride Level 104, Carbon Dioxide Level 25, Anion Gap 11, Blood Urea Nitrogen 24H, Creatinine 1.0, Estimat Glomerular Filtration Rate > 60, Glucose Level 97, Calcium Level 9.4, Amylase Level 95, Lipase 406H Height (Feet): 5 Height (Inches): 2.00 Weight (Pounds): 216 Objective GENERAL: A well-developed female, currently comfortable in NAD HEENT: Overall negative. Extraocular movements are grossly intact. Oropharynx is moist. NECK: Supple. No adenopathy. LUNGS: Otherwise fairly clear. No rhonchi or wheezes. CARDIAC: Normal S1 and S2. Regular rate and rhythm without murmurs, rubs, gallops. ABDOMEN: minimally tender in the epigastrium. No radiation. No distention. EXTREMITIES: No cyanosis, clubbing, or edema. NEUROLOGICAL: Grossly nonfocal. Gavin Greenwood MD November 11, 2017 07:28
[2017-11-11 08:00] VITALS: BP 116/76
[2017-11-11] MEDS: BuPROPion SR 100mg tab ORAL SCH (08:31)
[2017-11-11 12:00] VITALS: BP 139/92
--- NOTE | 2017-11-11 15:25 | General Progress Note ---
Assessment/Plan Assessment/Plan Assessment - Clinical presentation not typical for pancreatitis (buttock and flank pain) - CT negative for pancreatitis, but elevated lipase noted - previous pancreatic w/u in 2016 negative Recommendations - advance diet as tolerated - consider ortho eval for ? musculoskeletal pain - MRCP Sunday Subjective Allergies: Coded Allergies: AMPICILLIN (Verified Allergy, Severe, HIVES, ITCH, 05/02/17) ASPIRIN (Verified Allergy, Severe, TONGUE SWELLING, ITCHING, 05/02/17) ERYTHROMYCIN BASE (Verified Allergy, Severe, ITCH , 05/02/17) IODINE (Verified Allergy, Severe, HIVES, ITCHING, 05/02/17) PENICILLINS (Verified Allergy, Severe, HIVES, 05/02/17) TETRACYCLINES (Verified Allergy, Severe, SWELLING, ITCHING, 05/02/17) CODEINE (Verified Allergy, Unknown, 11/09/17) Subjective Feels OK tolerating PO still with buttock and flank pain Objective Last 24 Hour Vital Signs Date Time Temp Pulse Resp B/P (MAP) Pulse Ox O2 Delivery O2 Flow Rate FiO2 11/11/17 12:00 97.7 74 20 139/92 98 97.7 11/11/17 08:00 97.5 67 19 116/76 97 97.5 11/11/17 04:44 97.7 58 18 121/84 94 97.7 11/11/17 00:00 Room Air 11/11/17 00:00 97.0 63 17 120/71 96 97.0 11/10/17 20:13 97.5 56 17 122/90 98 97.5 11/10/17 20:00 Room Air 11/10/17 16:00 Room Air 11/10/17 15:36 98.2 67 20 115/83 98 98.2 Intake and Output 11/10/17 11/11/17 19:00 07:00 Intake Total 1100 ml 1100 ml Balance 1100 ml 1100 ml IV Total 1100 ml 1100 ml # Voids 4 4 Height (Feet): 5 Height (Inches): 2.00 Weight (Pounds): 216 Objective WDWN NCAT supple CTA RRR Soft ND NT no edema non focal Thanh Akins MD November 11, 2017 15:25
[2017-11-11 16:00] VITALS: BP 130/62
[2017-11-11 20:16] VITALS: BP 128/85
[2017-11-11] MEDS: DOXEPIN 100 MG ORAL SCH (21:21)
[2017-11-11] MEDS: Ziprasidone 20mg cap ORAL SCH (21:22)
[2017-11-12 00:18] VITALS: BP 145/84
[2017-11-12 04:29] VITALS: BP 141/79
[2017-11-12] MEDS: metFORMIN 500mg tab ORAL SCH ×2 (05:56→16:41)
[2017-11-12 08:00] VITALS: BP 143/81
[2017-11-12] MEDS: BuPROPion SR 100mg tab ORAL SCH (08:32)
--- NOTE | 2017-11-12 10:31 | General Progress Note ---
Assessment/Plan Assessment/Plan IMPRESSIONS: 1. Evidence of pancreatitis. 2. Diabetes, clinically fairly stable. 3. Hypertension per history. 4. Hypercholesterolemia per history. 5. Prior history of arthritis. 6. Left knee replacement. 7. Buttock pain PLAN tolerating diet hydration pain control MRCP d/w GI- await results and dc plan ?today maintain meds monitor blood sugars impression, plan, and exam edited and reviewed in detail care discussed with RN Subjective Allergies: Coded Allergies: AMPICILLIN (Verified Allergy, Severe, HIVES, ITCH, 05/02/17) ASPIRIN (Verified Allergy, Severe, TONGUE SWELLING, ITCHING, 05/02/17) ERYTHROMYCIN BASE (Verified Allergy, Severe, ITCH , 05/02/17) IODINE (Verified Allergy, Severe, HIVES, ITCHING, 05/02/17) PENICILLINS (Verified Allergy, Severe, HIVES, 05/02/17) TETRACYCLINES (Verified Allergy, Severe, SWELLING, ITCHING, 05/02/17) CODEINE (Verified Allergy, Unknown, 11/09/17) Subjective improved gi noted and discussed reduced pain taking po and tolerating Objective Last 24 Hour Vital Signs Date Time Temp Pulse Resp B/P (MAP) Pulse Ox O2 Delivery O2 Flow Rate FiO2 11/12/17 08:00 97.1 78 17 143/81 97 Room Air 97.1 11/12/17 04:29 97.7 84 18 141/79 95 97.7 11/12/17 00:18 97 Room Air 11/12/17 00:18 99.1 77 18 145/84 97 99.1 11/11/17 20:16 96 Room Air 11/11/17 20:16 97.7 78 17 128/85 96 97.7 11/11/17 16:00 Room Air 11/11/17 16:00 97.9 71 20 130/62 98 97.9 11/11/17 12:00 Room Air 11/11/17 12:00 97.7 74 20 139/92 98 97.7 Intake and Output 11/11/17 11/12/17 19:00 07:00 Intake Total 1340 ml 600 ml Balance 1340 ml 600 ml Intake Oral 240 ml 200 ml IV Total 1100 ml 400 ml # Voids 2 3 Laboratory Tests 11/12/17 06:05: Lipase 95 Height (Feet): 5 Height (Inches): 2.00 Weight (Pounds): 216 Objective GENERAL: A well-developed female, currently comfortable in NAD HEENT: Overall negative. Extraocular movements are grossly intact. Oropharynx is moist. NECK: Supple. No adenopathy. LUNGS: Otherwise fairly clear. No rhonchi or wheezes. CARDIAC: Normal S1 and S2. Regular rate and rhythm without murmurs, rubs, gallops. ABDOMEN: not tender in the epigastrium. No radiation. No distention. EXTREMITIES: No cyanosis, clubbing, or edema. NEUROLOGICAL: Grossly nonfocal. Gavin Greenwood MD November 12, 2017 10:31
[2017-11-12 11:57] VITALS: BP 151/88
--- NOTE | 2017-11-12 12:19 | GI Progress Note ---
Assessment/Plan Problems: (1) Pancreatitis ICD Codes: K85.90 - Acute pancreatitis without necrosis or infection, unspecified SNOMED: 96510140 Qualifiers: Qualified Codes: K85.00 - Idiopathic acute pancreatitis without necrosis or infection (2) Pancreatic cyst ICD Codes: K86.2 - Cyst of pancreas SNOMED: 25123951 (3) Morbid obesity with BMI of 40.0-44.9, adult ICD Codes: E66.01 - Morbid (severe) obesity due to excess calories; Z68.41 - Body mass index (BMI) 40.0-44.9, adult SNOMED: 748174593, [id number] Status: doing well, stable Status Narrative Discussed with Dr. Urbina. Assessment/Plan Assessment - Clinical presentation not typical for pancreatitis (buttock and flank pain) - CT negative for pancreatitis, but elevated lipase noted >> possible 2/2 ? hypertriglyceridemia given history of obesity - previous pancreatic w/u in 2016 negative Recommendations - okay for DC per GI standpoint if tolerates diet, and MRCP negative. - advance diet as tolerated - consider ortho eval for ? musculoskeletal pain - pain mgmt - fu labs - fu as outpatient Subjective Subjective abdominal pain as resolved Objective Last 24 Hour Vital Signs Date Time Temp Pulse Resp B/P (MAP) Pulse Ox O2 Delivery O2 Flow Rate FiO2 11/12/17 11:57 97.7 79 18 151/88 97 Room Air 97.7 11/12/17 08:00 97.1 78 17 143/81 97 Room Air 97.1 11/12/17 04:29 97.7 84 18 141/79 95 97.7 11/12/17 00:18 97 Room Air 11/12/17 00:18 99.1 77 18 145/84 97 99.1 11/11/17 20:16 96 Room Air 11/11/17 20:16 97.7 78 17 128/85 96 97.7 11/11/17 16:00 Room Air 11/11/17 16:00 97.9 71 20 130/62 98 97.9 Intake and Output 11/11/17 11/12/17 19:00 07:00 Intake Total 1340 ml 600 ml Balance 1340 ml 600 ml Intake Oral 240 ml 200 ml IV Total 1100 ml 400 ml # Voids 2 3 Laboratory Tests Test 11/12/17 06:05 Lipase 95 U/L ([id number]) Height (Feet): 5 Height (Inches): 2.00 Weight (Pounds): 216 General Appearance: WD/WN, no apparent distress, alert Cardiovascular: normal rate Respiratory/Chest: normal breath sounds, no respiratory distress Abdominal Exam: normal bowel sounds, non tender, soft Extremities: normal range of motion, non-tender Francine Rubio NP November 12, 2017 12:19
[2017-11-12 14:14] VITALS: BP 137/77
[2017-11-12 16:00] VITALS: BP 143/95
--- NOTE | 2017-11-12 16:03 | Diagnostic Imaging Report ---
Indication: Abdominal pain Technique: MRI of the abdomen was performed in a 1.5 Jud magnet. Pulse sequences obtained include coronal and axial T2 single shot fast spin echo breathhold and respiratory gated coronal T2 3-D M.R.C.P.; this data set was displayed in different projections or MIPs. Comparison: None Findings: Multiple series are degraded by patient motion. Within these limitations, the following observations are made: There is no evidence of cholelithiasis or choledocholithiasis. No intrahepatic or extrahepatic biliary ductal dilatation. No evidence of cholecystitis. Liver contour is smooth and signal is homogeneous. No appreciable focal liver mass. Pancreas is homogeneous in signal and grossly unremarkable in appearance. No definite peripancreatic inflammatory changes are seen however CT would be more sensitive for such changes. No pancreatic ductal dilatation. Lower chest grossly unremarkable. There are simple cysts in the bilateral kidneys. Adrenal glands grossly unremarkable. Some colonic diverticula are noted. Abdominal aorta is normal in caliber. Bladder is grossly unremarkable. Uterus is slightly prominent with somewhat asymmetric thickness of the posterior myometrium. There is trace fluid in the endometrial canal. IMPRESSION: Motion degraded exam. Within these limitations: * No evidence of cholelithiasis, choledocholithiasis or biliary ductal dilatation. * No definite peripancreatic inflammatory change identified however CT is more sensitive for subtle inflammatory findings. No pancreatic ductal dilatation. * Partially visualized uterus is slightly prominent with somewhat asymmetric thickness of the posterior myometrium. This raises question for possible fibroid or adenomyosis. Recommend further evaluation with dedicated pelvic sonogram, which may be obtained on a routine basis.
--- NOTE | 2017-11-13 15:06 | Discharge Summary ---
Discharge Summary Discharge Summary Discharge Summary DATE OF ADMISSION: 11/09/2017 DATE OF DISCHARGE: 11/12/2017 REASON FOR ADMISSION: 67 years old female with history of hypertension, pancreatitis, bilateral knee osteoarthritis,,diabetes, high cholesterol, morbidly obesity, presented to emergency room with chief complaint of left flank and back pain. She denied any trauma or injury. Patient reported pain radiating to the groin and buttock area. She denied incontinence of bowel and urine. No fever, no chills , no nausea, no vomiting . Pain exacerbated with standing position and improved with rest. Patient reported pain as 9 out of 10 on a scale 1-10. No saddle anesthesia. Laboratory workup revealed mild leukocytosis with WBC 11.1, hemoglobin 11.7, hematocrit 36.4, lipase 1439 . Urinalysis with evidence of UTI . CT of the abdomen and pelvis revealed no acute intra-abdominal pathology.. Vital signs were stable. Patient admitted with diagnosis of possible pancreatitis, diabetes mellitus, hypertension ,hypercholesterolemia, history of arthritis with left knee replacement, possible UTI . morbid obesity CONSULTANTS: GI specialist Dr Akins HOSPITAL COURSE: Patient was admitted. Patient started on the IV fluids. GI consult was requested. Pain management was addressed. Patient initially kept nothing by mouth. Lipase was closely monitored and trended. Amylase was within normal limits. LFT remained stable. GI seen and evaluated patient and concluded that pain was atypical for pancreatitis given radiation to buttock and groin. In addition CT of the abdomen and pelvis was negative. Patient subsequently undergone MRI of the abdomen which revealed no evidence of cholelithiasis, choledocholithiasis or biliary ductal dilatation. No pancreatic ductal dilation seen as well. Urine culture revealed mixed gram-positive organisms. Mild leukocytosis present initially, resolved the next day. Patient afebrile. Patient slowly started on liquid diet and advanced as tolerated. Antiemetics provided as needed. Patient was able to tolerate diet. Abdominal pain resolved. Lipase down to normal 95. Blood sugar was managed with metformin. Blood pressure was managed with current regimen and remained stable. Statin was continued. Bowel regimen instituted. GI cleared patient for discharge. FINAL DIAGNOSES: Elevated lipase Possible pancreatitis Diabetes mellitus Hypertension Hypercholesterolemia Morbid obesity History of arthritis with left knee on replacement DISCHARGE MEDICATIONS: See Medication Reconciliation list. DISCHARGE INSTRUCTIONS: Patient was discharged home. Follow up with primary care provider next week. I have been assigned to dictate discharge summary for this account. I was not involved in the patient's management. Claudia Eden NP November 13, 2017 15:06
== END 2017-11-12 19:30 | disposition home or self-care (01) | DRG 439 ==
LOC: EMR 22:44 → 4W 23:41 → EDBEDREQ 23:52 → 4W 11-10 03:23
DX: K85.90 Acute pancreatitis without necrosis or infection, unspecified (principal); K86.2 Cyst of pancreas; Z68.41 Body mass index [BMI] 40.0-44.9, adult; E66.01 Morbid (severe) obesity due to excess calories; E78.00 Pure hypercholesterolemia, unspecified; I10 Essential (primary) hypertension; H40.9 Unspecified glaucoma; Z96.652 Presence of left artificial knee joint; E11.9 Type 2 diabetes mellitus without complications; Z86.73 Personal history of transient ischemic attack (TIA), and cerebral infarction without residual deficits; Z88.6 Allergy status to analgesic agent; Z88.1 Allergy status to other antibiotic agents; Z88.0 Allergy status to penicillin; Z88.8 Allergy status to other drugs, medicaments and biological substances; M54.9 Dorsalgia, unspecified
CPT/HCPCS: 36415; 74176; 74181; 80048; 80053; 81003; 82150; 82962; 83690; 85025; 87086; 99285; J2405